=== PATIENT | male | born 1970 | race Caucasian/White ===

== ENCOUNTER 2017-02-01 11:14 | Emergency (ER) | payer OTHER ==
[~2017-02-01] VITALS: Ht 170.2 cm; Wt 83.6 kg
[2017-02-01 11:20] VITALS: TEMP 36.8; Ht 170.2 cm; Wt 83.6 kg
[2017-02-01] MEDS ORDERED: XYLOCAINE 1%/SOD BICARB 20 ML VIAL INFIL ONE (12:00)
[2017-02-01] MEDS ORDERED: DIPHTHERIA/TETANUS/PERTUSSIS 0.5 ML SYR/VIAL IM. ONE (12:00)
--- NOTE | 2017-02-01 13:22 | DIAGNOSTIC IMAGING REPORT ---
R FINGER(S) MIN 2 VIEWS ROUTINE CLINICAL HISTORY: Injury with laceration. Evaluate for fracture. COMPARISON: None FINDINGS: Alignment of the right fourth finger is anatomic. There is no acute fracture or radiopaque foreign body. IMPRESSION: No acute fracture or dislocation of the right fourth finger. Electronically signed by: Luigi Bañuelos M.D. 02/01/2017 1:20 PM Dictated Date/Time: 02/01/2017 1:19 PM
[2017-02-01] MEDS ORDERED: CEPH500C PO (13:37)
--- NOTE | 2017-02-01 13:37 | EMERGENCY ROOM VISIT NOTE ---
ED Visit Note First contact with patient: 11:38 CHIEF COMPLAINT: Right fourth finger laceration one hour ago HISTORY OF PRESENT ILLNESS: Patient is a [id number] 46-year-old white male who presents to emergency department for evaluation of a laceration to his right fourth finger. About an hour ago, he was moving some construction equipment. He was wearing a glove, and picked up an excavator bucket and tossed into a skid cross tie tram loader bucket. The right fourth finger was pinched between the 2 buckets, causing the laceration described below. He notes a mild, throbbing pain that he rates a 5/10. The bleeding has stopped. Denies weakness or numbness of the finger. REVIEW OF SYSTEMS: Review of systems as per HPI. All other systems reviewed were negative. At least 6 systems reviewed. PMH: Electronic medical records are reviewed and summarized as above/below. See Problem List. He is unsure of his last tetanus. SOCIAL HISTORY: Patient lives at home with his girlfriend. Smokes 2 pack of cigarettes daily. PHYSICAL EXAM: Vital Signs: Reviewed Nurse's notes. There is a 3 cm long laceration on the palmar aspect of the right fourth finger pad. It does not cross the DIP crease. The edges gape apart with traction. There is no foreign material in the wound and it looks clean. There is no bleeding. No deep structures such as tendons or nerves are seen in the base of the wound. Flexion and extension of the finger is full and strong. EMERGENCY DEPARTMENT COURSE: Patient's tetanus was updated. X-rays of the right fourth finger were obtained and were negative for fracture. Using sterile technique, saline and Betadine cleansing, and 1% lidocaine anesthesia, the laceration was repaired with 12, 5-0 nylon sutures. X-rays were negative for fracture. I do not suspect nerve, vascular or tendinous injury. There is no nailbed involvement. Medication reconciliation: I attest that I have personally reviewed the patient' s current medication list. Blood pressure screening: Patient was found to have a slightly elevated blood pressure due to circumstances. I do not believe that the patient requires hypertension monitoring. R FINGER(S) MIN 2 VIEWS ROUTINE CLINICAL HISTORY: Injury with laceration. Evaluate for fracture. COMPARISON: None FINDINGS: Alignment of the right fourth finger is anatomic. There is no acute fracture or radiopaque foreign body. IMPRESSION: No acute fracture or dislocation of the right fourth finger. Problem List Surgical Problems: (1) S/P wrist surgery Status: Resolved Current/Historical Medications Scheduled Cephalexin Monohydrate (Keflex), 500 MG PO TID Allergies Coded Allergies: No Known Allergies (Unverified , 02/01/17) Vital Signs Date Time Temp Pulse Resp B/P (MAP) Pulse Ox O2 Delivery O2 Flow Rate FiO2 02/01/17 13:46 69 20 143/89 98 02/01/17 11:20 36.8 95 18 155/95 95 Room Air Medications Administered Medications (Trade) Dose Ordered Sig/Kim Route Start Time Stop Time Status Last Admin Dose Admin Diphtheria/ Pertussis/Tetanus Vacc (Adacel Inj) 0.5 ml ONCE ONCE IM. 02/01/17 12:00 02/01/17 12:01 DC 02/01/17 11:57 0.5 ML Lidocaine HCl (Buffered Lidocaine 1% Inj) 20 ml ONE ONCE INFIL 02/01/17 12:00 02/01/17 12:01 DC 02/01/17 11:57 20 ML Departure Information Impression Primary Impression: Laceration of finger Additional Impression: Work related injury Prescriptions Cephalexin Monohydrate (Keflex) 500 Mg Cap 500 MG PO TID, #21 CAP Prov: Eugenia Patricio PA 02/01/17 Referrals No Doctor, Assigned (PCP) Patient Instructions [facility] Additional Instructions Keep wound clean and dry. Do not allow any crusting or dried blood to accumulate on sutures. If this occurs, use a 1:1 solution of hydrogen peroxide/ water on a Q-tip to clean the wound. Use an antibiotic ointment for 3-4 days, then let wound dry. Suture removal in 12-14 days. Return sooner for any signs of infection (increasing redness, swelling, drainage). If you notice any signs of infection, fill and start the prescription for Keflex, and be reevaluated in 24 hours. Ice and elevate for swelling and pain. Ibuprofen 600 mg and Tylenol 1000 mg every 6 hrs for pain. Problem Qualifiers
[2017-02-01 13:46] VITALS: BP 143/89; PULSE 69; O2SAT 98
== END 2017-02-01 13:45 | disposition home or self-care (01) ==
LOC: C.EDB 11:17 → C.EDD 13:45
DX: S61.214A Laceration without foreign body of right ring finger without damage to nail, initial encounter (principal); Z23 Encounter for immunization; W23.0XXA Caught, crushed, jammed, or pinched between moving objects, initial encounter; Y99.0 Civilian activity done for income or pay; F17.200 Nicotine dependence, unspecified, uncomplicated